=== PATIENT | male | born 1980 | race Caucasian/White ===

== ENCOUNTER 2018-02-13 22:54 | Emergency (ER) | payer BC, OTHER ==
[~2018-02-13] VITALS: Ht 175.3 cm; Wt 103.9 kg
[2018-02-13 22:57] VITALS: BP 154/95
[2018-02-13] MEDS ORDERED: LIDOCAINE-MPF 2% ,5ML ONE (23:54)
[2018-02-13] MEDS ORDERED: CLINDAMYCIN 150 MG/ML, 6ML ONE (23:56)
[2018-02-14] MEDS ORDERED: LIDOCAINE-MPF 2% ,5ML INFIL ONE
[2018-02-14] MEDS ORDERED: CLINDAMYCIN 150 MG/ML, 6ML IM ONE
== END 2018-02-14 00:26 | disposition home or self-care (01) ==
LOC: ED 02-14 00:24
DX: K04.7 Periapical abscess without sinus (principal)
CPT/HCPCS: 41800; 96372; 99283; J3490